=== PATIENT | female | born 1960 | race Caucasian/White ===

== ENCOUNTER → 2021-03-08 09:27 | Outpatient (CLI) | payer BC, SELFPAY ==
--- NOTE | 2021-03-07 | ASPOS_PTH ---
PATIENT: CHERELLE HURTADO LOC: [facility] U#:[id number] AGE/SX: 64/F ROOM: RE03/08/[address]: Dr. Jonathan Marrero MD : 1960 BED: DIS: SPEC #: [id number] RECD: 03/08/21 10:00 STATUS: SARAH RAMIREZLanette #: [id number] FARIDA: 03/07/21 00:[address]: Jonathan Marrero DEPT: CYTOLOGY RECD BY: Eula Pappas ENTERED: 03/08/21 10:43 SP TYPE: ASP HERE OTHR DR: Dr. Willi Shrestha DO Tissues: Parotid gland, NOS Procedures: Surgery Specimen Level IV Cytology Other Fine Needle Asp on Site HEADER OPERATION: Fine needle aspiration, right parotid mass PRE-OP DIAGNOSIS: Right parotid mass TISSUE SUBMITTED: Right parotid mass FNA DIAGNOSIS CYTOLOGY Fine needle aspiration, right parotid mass (smears and cell block): Consistent with pleomorphic adenoma. AM:melchor 03/09/2021 COMMENT The specimen is evaluated at the time of FNA by Dr. Blue. Immediate Evaluation = Consistent with pleomorphic adenoma. CYTOLOGY STUDY Slides are reviewed. CYTOLOGY GROSS Received is 0.25 ml of reddish fluid labeled with the patient's name, and designated right parotid. Three imprints and three paps are made from the submitted fluid and the rest is added to CytoLyt for cell block preparation. Submitted for cytology study. / AM:melchor 03/08/2021 TC:1 CPT: 16000, 55840, 81871, 72250
== END ==
PROVIDERS: PCP Preventive Medicine Occupational Medicine; Visit Provider Otolaryngology
DX: D11.0 Benign neoplasm of parotid gland (principal)
CPT/HCPCS: 10021; 88161; 88305

== ENCOUNTER 2021-05-30 06:52 | Day surgery (SDC) | payer BC, SELFPAY ==
--- NOTE | 2021-05-29 17:15 | EKG12_ITS ---
Test Reason : Blood Pressure : / mmHG Vent. Rate : 065 BPM Atrial Rate : 065 BPM P-R Int : 178 ms QRS Dur : 086 ms QT Int : 360 ms P-R-T Axes : 073 -39 104 degrees QTc Int : 374 ms Normal sinus rhythm Left axis deviation Low voltage QRS Septal infarct , age undetermined Abnormal ECG Confirmed by VALENCIA HERNANDEZ, NAHUN ([id number]), food expeditor TITUS JAVIER ([id number]) on 05/30/2021 10:09:15 AM Referred By: Desmond Marrero Confirmed By:NAHUN BIRMINGHAM MD
--- NOTE | 2021-05-30 | PAR_PTH ---
PATIENT: CHERELLE HURTADO LOC: [facility] U#:[id number] AGE/SX: 60/F ROOM: RE05/30/[address]: Dr. Jonathan Marrero MD : 1960 BED: DIS: 05/30/2021 SPEC #: [id number] RECD: 05/30/21 15:07 STATUS: SARAH HERNANDEZ #: [id number] FARIDA: 05/30/21 00:[address]: Jonathan Marrero DEPT: SURGICAL PATHOLOGY RECD BY: Dominic Lopez ENTERED: 05/31/21 10:14 SP TYPE: PAROTID OTHR DR: Dr. Willi Shrestha, DO Tissues: Parotid gland, NOS Procedures: Surgery Specimen Level V HEADER OPERATION: Parotidectomy, muscle flap, fat graft PRE-OP DIAGNOSIS: Benign neoplasm of right parotid gland TISSUE SUBMITTED: Right parotid MICROSCOPIC DIAGNOSIS Right parotid, parotidectomy: Pleomorphic adenoma (1.5 cm in greatest dimension). See comment. EDIS:melchor 06/01/2021 COMMENT The tumor appears to be completely excised. Please make reference to previous specimen ([id number]) fine needle aspiration, right parotid mass with diagnosis of ?consistent with pleomorphic adenoma.? MICROSCOPIC DESCRIPTION Slides are reviewed. GROSS DESCRIPTION Received in fixative is one container labeled with the patient's name and designated right parotid. The specimen consists of a piece of glandular tissue weighing 12.1 gm and measuring 4 x 3.5 x 1.5 cm. Serial sections reveal a davila, solid nodule measuring 1.5 x 1.5 x 1 cm. The rest of the specimen reveal unremarkable cut surfaces. Gasoline Pump Installer sections are submitted in seven cassettes. Cassettes 1-3 contain the entire nodule. / EDIS:melchor 05/31/2021 TC:1 CPT: 43969
[2021-05-30 07:29] LABS: Absolute Lymphocyte Count 1.41 X10^3/uL (0.83-4.51); Absolute Neutrophil Count 0.9 X10^3/uL (2.0-7.7); Basophil# 0.09 X10^3/uL; Basophil% 3.2 % (0-1); Eosinophil# 0.19 X10^3/uL; Eosinophils% 6.7 % (0-5); Hematocrit 33.8 % (37-47); Hemoglobin 11.1 g/dL (12.0-15.0); Lymphocyte # 1.41 X10^3/ul (0.83-4.51); Mean Corp Hgb Conc 32.8 g/dL (32-36); Mean Corpuscular Volume 100.6 fL (81-99); Mean Platelet Vol. 9.6 fl (6.2-12.0); Monocyte# 0.24 X10^3/uL; Monocyte% 8.5 % (0-10); NRBC Flagged by Analyzer 0 % (0-5); Neutrophil # 0.88 X10^3/uL (2.7-7.7); Neutrophil % 31.2 % (47-70); POSITIVE DIFFERENTIAL YES; Platelet Count 231 K/mm3 (150-450); RBC Distribution Width CV 13.3 % (11.6-14.6); RBC Distribution Width SD 50.1 fl (35.1-43.9); Red Blood Count 3.36 M/mm3 (4.2-5.4); White Blood Count 2.8 K/mm3 (4.4-11.0)
[2021-05-30 07:30] VITALS: BP 121/82; PULSE 55; RESP 18; TEMP 36.4; O2SAT 99; BMI 25.8
[2021-05-30 07:51] LABS: ALB/GLOB Ratio 1.2 RATIO (0.9-2.4); AST(SGOT) 25 U/L (15-37); Alanine Aminotransfer ALT/SGPT 18 U/L (13-56); Albumin, Serum 3.6 g/dL (3.2-5.0); Alkaline Phosphatase 73 U/L (45-117); Anion Gap 5 (5-15); BUN 13 mg/dL (7-18); BUN/Creat Ratio 13.4 RATIO (10-20); Calcium,Total 9.1 mg/dL (8.5-10.1); Chloride 112 mmol/L (98-107); Creatinine, Serum 0.97 mg/dL (0.55-1.02); Differential Indicated SCAN CRITERIA MET; EST Glomerular Filtration Rate 62 mL/min (>60); Est Glom Filt Rate - Afr Amer 75 mL/min (>60); Glucose 93 mg/dL (74-106); Potassium 3.9 mmol/L (3.5-5.1); Protein, Total 6.6 g/dL (6.4-8.2); Sodium Level 140 mmol/L (136-145)
[2021-05-30] MEDS: Lactated Ringers 1,000 ML 15 ML IV ×2 (08:00→09:45)
--- NOTE | 2021-05-30 08:11 | DCINST_ITS ---
Discharge Instructions Diet Discharge Diet: No restrictions Activity Additional Activity Instructions:: do not shower until seen in clinic Dressing / Incision Call your doctor if your incision/area has: Sudden Increased Bleeding Additional Dressing/Incision Instructions:: mupirocin to face incision three times daily. record RODRICK output. wear abdominal binder Follow Up Care Please Follow Up With: Desmond Marrero MD When: tomorrow morning (saturday, ) Test Results: Test results from this visit will be discussed in further detail at your follow-up appointment, if applicable. Discharge Plan Admission Attending Provider: Desmond Marrero Primary Care Provider: Willi Shrestha Discharge Orders/Prescriptions Prescriptions: No Action fluticasone propion-salmeterol 500-50 mcg/dose blister with device 1 ea INHALATION BID RF: 0 omeprazole 20 mg Capsule,Delayed Release(Dr/Ec) 20 mg PO DAILY RF: 0 albuterol sulfate 90 mcg/actuation HFA aerosol inhaler 1 - 2 puff INHALATION PRN PRN (Reason: ASTHMA) RF: 0 Other Ambulatory Orders: 12 Lead EKG (Routine) Timeframe: [id number] Facility: [facility] - Location: Cardiovascular Services Ordered By: Dr. Patrick Andrea
[2021-05-30] MEDS: Lidocaine 2% /Epi 1:100 (50ml) 50 ML Vial (08:51)
[2021-05-30] MEDS: Mupirocin Ointment 22gm Tube 1 APPLIC (12:41)
--- NOTE | 2021-05-30 13:53 | PCM.OPRPT ---
Problems Associated Problem List Diagnoses (1) Benign neoplasm parotid gland: Report of Operation Date of Procedure: 05/30/21 Pre-Operative Diagnosis: 1. pleomorphic adenoma, right parotid gland 2. parotidectomy defect Post-Operative Diagnosis: 1. pleomorphic adenoma, right parotid gland 2. parotidectomy defect Surgery/Procedure Performed:: 1. right superficial parotidectomy 2. fat graft 3. superficial musculoaponeurotic system flap Surgeon: Desmond Marrero gathering machine feeder: Justin Oliva Type of Anesthesia: General Description of Procedure: on the day of the procedure, after appropriate informed consent was obtained, the patient was brought to the operating room and placed in supine position on the operating table. she was placed under general endotracheal anesthesia by the anesthesiologist. the endotracheal tube was secured, the eyes were taped. facial nerve electrodes were placed on the right face. the table was rotated 90 degrees toward the surgeon. the face was prepped and draped in sterile fashion, as was the left lower quadrant of the abdomen. the right preauricular area was injected with lidocaine/epinephrine. a modified frankie incision was made on the right with a 15 blade which looped into the neck. an intraadipose flap was created. the SMAS was incised with a 15 blade and the parotid/masseteric fascia was revealed. superficial to this fascia, a SMAS flap was created 4cm anterior to the incision and this connected in the neck with the platysma. the tragus was dissected in a supraperichondrial plane. the inferior portion of the parotid gland was released off of the sternocleidomastoid with metzenbaum scissor. the tragal pointer was dissected; the main trunk was located 1cm inferior and deep to the pointer. this was stimulated for confirmation. the lower division was dissected with the milton dissector with all of its branches. the superficial lower gland with the tumor was reflected superiorly. the superior division was dissected with its branches. all branches were stimulated and accounted for. the marginal mandibular and buccal branches were running next to each other deep to the tumor and preserved. the lateral gland was removed with the bipolar and metzenbaum scissor. again, the branches all stimulated and reacted and were intact. the left lower quadrant was injected with lidocaine/epinephrine and incised with a 15 blade, a 3cm incision. using a metsenbaum and an adson, a 3cm x 3cm fat graft was harvested. hemostasis was achieved with the bipolar. a patricia was placed and the incision was closed with 4-0 vicryl and 4-0 ethibond. the fat graft was trimmed and placed into the parotidectomy defect. this was sutured into placed at many points with 4-0 vicryl. the SMAS flap was closed lateral to the fat graft with multiple 4-0 vicryl as well. a 10 mexican RODRICK drain was placed and sutured. the overlying skin was closed with 4-0 vicryl and 5-0 nylon. she was awoken from anesthesia and transferred to the PACU in stable condition. postoperatively, all right facial nerve branches were intact on exam.
[2021-05-30 13:56] VITALS: BP 120/73; BP 121/82; PULSE 72; RESP 16; TEMP 36.1; O2SAT 97
[2021-05-30 14:00] VITALS: BP 120/73; BP 121/82; PULSE 77; RESP 16; O2SAT 94
[2021-05-30 14:15] VITALS: BP 117/83; BP 121/82; PULSE 71; RESP 16; O2SAT 97
[2021-05-30 14:25] VITALS: BP 114/90; BP 121/82; PULSE 62; RESP 16; TEMP 35.5; O2SAT 97
[2021-05-30 15:00] VITALS: BP 121/82
== END 2021-05-30 23:59 | disposition home or self-care (01) ==
LOC: SDC 06:53 → AC 06:54
PROVIDERS: PCP Preventive Medicine Occupational Medicine; Referring Provider Otolaryngology; Visit Provider Otolaryngology
PROC: (CPT 42410; principal; 2021-05-30 07:55)
DX: C07 Malignant neoplasm of parotid gland (principal); J45.909 Unspecified asthma, uncomplicated; K21.9 Gastro-esophageal reflux disease without esophagitis; M19.90 Unspecified osteoarthritis, unspecified site; I25.2 Old myocardial infarction; F17.200 Nicotine dependence, unspecified, uncomplicated; Z79.899 Other long term (current) drug therapy; Z20.822 Contact with and (suspected) exposure to COVID-19
CPT/HCPCS: 42415; 00100; 80053; 85025; 87426; 88305; 88307; 93005; J7120; J2405

== ENCOUNTER → 2022-12-04 | Outpatient (CLI) | payer BC, SELFPAY ==
--- NOTE | 2022-12-04 | ASPOS_PTH ---
PATIENT: CHERELLE HURTADO LOC: [facility] U#:[id number] AGE/SX: 62/F ROOM: RE12/04/[address]: Dr. Jonathan Marrero MD : 1960 BED: DIS: 12/04/2022 SPEC #: [id number] RECD: 12/04/22 12:22 STATUS: SARAH RELanette #: [id number] FARIDA: 12/04/22 00:[address]: Jonathan Marrero DEPT: CYTOLOGY RECD BY: Dominic Lopez ENTERED: 12/04/22 12:23 SP TYPE: ASP HERE OTHR DR: Dr. Willi Shrestha, DO Tissues: Neck, NOS Procedures: Surgery Specimen Level IV Cytology Other Fine Needle Asp on Site HEADER OPERATION: Fine needle aspiration, right neck mass PRE-OP DIAGNOSIS: Right neck mass TISSUE SUBMITTED: Right neck mass DIAGNOSIS CYTOLOGY Fine needle aspiration, right neck mass (smears and cell block): Negative for malignant cells. See comment. AM:melchor 12/05/2022 COMMENT A fine needle aspiration was performed and the specimen is evaluated at the time of FNA by Dr. Blue. Immediate Evaluation = Negative for malignant cells. The specimen contains rare benign fibroblasts. No epithelial neoplasm is identified. The lesion is tender at aspiration and may represent a fibroblastic/neurofibroblastic reactive process at site of previous surgery. Clinical correlation is necessary. CYTOLOGY STUDY Slides are reviewed. CYTOLOGY GROSS Received is 0.1 ml of clear oily fluid labeled with the patient's name, and designated right neck mass. Two imprints are made from the submitted fluid and the rest is added to CytoLyt for cell block preparation. Submitted for cytology study. / AM:melchor 12/04/2022 TC:5 CPT: 60057, 48766, 07376, 31538
== END | disposition home or self-care (01) ==
LOC: LAB 09:33
PROVIDERS: PCP Preventive Medicine Occupational Medicine; Referring Provider Otolaryngology; Visit Provider Otolaryngology
DX: R22.1 Localized swelling, mass and lump, neck (principal)
CPT/HCPCS: 10021; 88161; 88305